=== PATIENT | female | born 1955 | race Caucasian/White ===

== ENCOUNTER 2022-07-12 15:17 | Emergency (ER) | payer BC ==
[~2022-07-12] VITALS: Ht 170.2 cm; Wt 118.0 kg
[~2022-07-12 15:17] MED LIST: ZOF4T PO
[2022-07-12 16:02] VITALS: BP 158/77
[2022-07-12] MEDS ORDERED: BEBTELOVIMAB 175 MG/2 ML VIAL IV ONE (17:00)
[2022-07-12] MEDS ORDERED: DEXA6TAB PO (17:31)
[2022-07-12] MEDS ORDERED: ALBU6.7H14 INH (17:31)
== END 2022-07-12 18:55 | disposition home or self-care (01) ==
LOC: ER 15:17
DX: U07.1 COVID-19 (principal); Z88.0 Allergy status to penicillin
CPT/HCPCS: 71045; 99283